=== PATIENT | male | born 1965 | race Two or more races ===

== ENCOUNTER 2017-12-19 14:38 | Inpatient (IN) | payer MEDICARE, MEDICAID ==
[~2017-12-19] VITALS: Ht 177.8 cm; Wt 68.0 kg
[~2017-12-19 14:38] MED LIST: ALPR0.25 PO; B-CO1CAP6 PO; BENA5TAB14; CALC0.25; CALC0.25 PO; CARV25TA OR; CARV25TA55; CARV25TA55 PO; CARV40CA; CYCL1CAP; CYCL1CAP PO; CYCL1CAP10 OR; ERGO1CAP6 PO; FER325T PO; GLUC1KIT; HYDR50TA15; INSLISPI; INSU70IN9; INSU70IN9 SC; INSUINJ3 SC; MULTCAP45 PO; MYCO250C PO; MYCO500T PO; NIFE30TA70; NIFE30TA76 PO; OME20GT; OME20T PO; OMEG1CAP10; OMEG1CAP10 OR; OMEP20CA74 OR; OMEP20TA34 PO; POTA8TAB2; PRE5T; PRED5PAK2; PRED5PAK8 PO; PREDPOW63; PROCARDIA PO; RANI-229; RANI300C7; RANI300C7 PO; SIMV-13 PO; SIMV-8; SIMV40TA96; SODI650T PO; TACR1TAB4 PO; VALS40TA2 OR; [UNRECOGNIZED DRUG - CODE]
[2017-12-19] MEDS ORDERED: VANCOMYCIN PER PHARMACY 0 MG IV SCH (16:00)
[2017-12-19] MEDS ORDERED: MORPHINE SULF INJ 2 MG/ML SYRINGE 1ML IV PRN (16:00)
[2017-12-19] MEDS ORDERED: NITROGLYCERIN 0.4 MG SL TAB SL PRN (16:00)
[2017-12-19] MEDS ORDERED: DEXTROSE (50%) 50ML SYRG IV PRN (16:00)
[2017-12-19 16:27] LABS: Basophils # (auto) 0.1 uL; Basophils % (auto) 1.3 % (0.0-2.0); Eosinophils # (auto) 0 uL; Eosinophils % (auto) 0.6 % (0.0-7.0); Hemoglobin 7.6 g/dL (13.5-17.5); Lymphocytes # (auto) 1.8 uL; Lymphocytes % (auto) 29.8 % (10.0-50.0); Mean Corpuscular Hemoglobin 29.9 pg (28.0-32.0); Mean Corpuscular Hgb Conc. 33.2 g/dL (32.0-36.0); Mean Corpuscular Volume 90.1 fL (80.0-100.0); Monocytes # (auto) 0.5 uL; Monocytes % (auto) 8.9 % (0.0-12.0); Neutrophils # (auto) 3.5 uL; Neutrophils % (auto) 59.4 % (37.0-80.0); Nucleated Red Blood Cells % 0.2 %; Platelet Count (auto) 161 10^3/uL (140-450); Red Blood Cells 2.55 10^6/uL (4.5-5.90); Red Cell Distribution Width 18.9 % (11.8-14.3); White Blood Cell 5.9 10^3/uL (4.4-10.8)
[2017-12-19] MEDS ORDERED: CALCITRIOL 0.25 MCG CAP PO ONE (16:30)
[2017-12-19] MEDS ORDERED: cefTAZidime 1 GM in SODIUM CHL 0.9% 50 ML IV SCH (16:30)
[2017-12-19 16:37] LABS: Albumin 0.5 g/dL (3.4-5.0); BUN/Creatinine Ratio 2.5; Bilirubin, Total 0.3 mg/dL (0.2-1.0); Calcium 6.4 mg/dL (8.5-10.1); Magnesium 1.5 mg/dL (1.6-2.6); Potassium 3.6 mmol/L (3.5-5.1); Total Protein 3.6 g/dL (6.4-8.2)
[2017-12-19 16:42] LABS: Lactic Acid w/Reflex 5.2 mmol/L (0.4-2.0)
[2017-12-19] MEDS ORDERED: VANCOMYCIN 1GM/250ML 250 ML IV ONE (16:45)
[2017-12-19] MEDS: ACCU-CHEK COMFORT CURVE STRIP VI SCH ×2 (17:46→22:00)
[2017-12-19] MEDS: InsuLIN REG 1unit/0.01ml Soln (100units/ml) SC SCH ×2 (17:46→22:00)
[2017-12-19] MEDS ORDERED: MAGNESIUM SULFATE 1GM/100ML 100 ML IV ONE (18:00)
[2017-12-19] MEDS: BOOST PLUS 8 ounce PO SCH (18:49)
[2017-12-19 21:20] VITALS: BP_SYST 102; BP_SYST 106; BP_DIAS 62; BP_DIAS 72
[2017-12-19 22:33] LABS: Hematocrit 22.8 % (41.0-53.0); Hemoglobin 7.7 g/dL (13.5-17.5)
[2017-12-19 22:48] LABS: Lactic Acid w/Reflex 3.5 mmol/L (0.4-2.0)
[2017-12-19] MEDS: LEVOFLOXACIN 500MG 100 ML IV SCH (23:00)
[2017-12-20] VITALS (17 sets, daily range): BP systolic 94–119; BP diastolic 59–69
[2017-12-20] MEDS: ACCU-CHEK COMFORT CURVE STRIP VI SCH ×4 (06:33→22:00)
[2017-12-20] MEDS: InsuLIN REG 1unit/0.01ml Soln (100units/ml) SC SCH ×4 (06:34→23:00)
[2017-12-20 07:27] LABS: Basophils # (auto) 0 uL; Eosinophils # (auto) 0 uL; Hemoglobin 7.1 g/dL (13.5-17.5); Lymphocytes # (auto) 1.7 uL; Monocytes # (auto) 0.6 uL; Red Cell Distribution Width 18.6 % (11.8-14.3)
[2017-12-20 07:30] LABS: Basophils % (auto) 0.6 % (0.0-2.0); Eosinophils % (auto) 0.3 % (0.0-7.0); Hematocrit 20.4 % (41.0-53.0); Lymphocytes % (auto) 31.6 % (10.0-50.0); Mean Corpuscular Hgb Conc. 34.8 g/dL (32.0-36.0); Mean Corpuscular Volume 89.1 fL (80.0-100.0); Monocytes % (auto) 11.8 % (0.0-12.0); Neutrophils % (auto) 55.7 % (37.0-80.0); Nucleated Red Blood Cells % 0.4 %; Platelet Count (auto) 132 10^3/uL (140-450); Red Blood Cells 2.29 10^6/uL (4.5-5.90); White Blood Cell 5.5 10^3/uL (4.4-10.8)
[2017-12-20 07:50] LABS: BUN/Creatinine Ratio 2.4; Calcium 6.7 mg/dL (8.5-10.1); Magnesium 1.7 mg/dL (1.6-2.6); Potassium 3.1 mmol/L (3.5-5.1)
[2017-12-20] MEDS: BOOST PLUS 8 ounce PO SCH ×3 (08:00→18:00)
[2017-12-20] MEDS ORDERED: PANTOPRAZOLE 40 MG TAB PO ONE (09:45)
[2017-12-20] MEDS: APIXABAN 2.5 MG TAB PO SCH ×2 (10:00→23:30)
[2017-12-20] MEDS: CALCITRIOL 0.25 MCG CAP PO SCH (10:00)
[2017-12-20] MEDS ORDERED: ENOXAPARIN SOD 30 MG/0.3 ML SYRINGE SC SCH (10:00)
[2017-12-20] MEDS ORDERED: VANCOMYCIN 750 MG in D5W 5% 250 ML IV ONE (11:00)
[2017-12-20] MEDS ORDERED: EPOETIN ALFA 10,000 UNIT/1 ML VIAL IV ONE (11:30)
[2017-12-20 11:59] LABS: % Iron Saturation 157.9 % (20-55)
[2017-12-20 13:31] LABS: INR 2.5 (0.9-1.15); Prothrombin Time 25.4 sec (9.27-12.13)
[2017-12-20] MEDS ORDERED: APIX2.5T OR (20:36)
[2017-12-20] MEDS ORDERED: POTA20TA53 PO (20:36)
[2017-12-20] MEDS ORDERED: MAGN250T3 PO (20:36)
[2017-12-20] MEDS ORDERED: MAGN250T8 PO (20:37)
[2017-12-21 00:15] VITALS: BP 105/70
[2017-12-21 05:00] VITALS: BP 125/78
[2017-12-21 05:40] LABS: Basophils # (auto) 0 uL; Basophils % (auto) 0.6 % (0.0-2.0); Eosinophils # (auto) 0 uL; Eosinophils % (auto) 0.5 % (0.0-7.0); Hematocrit 27.1 % (41.0-53.0); Hemoglobin 9.4 g/dL (13.5-17.5); Lymphocytes # (auto) 1.6 uL; Lymphocytes % (auto) 33.4 % (10.0-50.0); Mean Corpuscular Hemoglobin 31.4 pg (28.0-32.0); Mean Corpuscular Hgb Conc. 34.9 g/dL (32.0-36.0); Mean Corpuscular Volume 89.9 fL (80.0-100.0); Monocytes # (auto) 0.7 uL; Monocytes % (auto) 13.3 % (0.0-12.0); Neutrophils # (auto) 2.6 uL; Neutrophils % (auto) 52.2 % (37.0-80.0); Nucleated Red Blood Cells % 0.4 %; Red Blood Cells 3.01 10^6/uL (4.5-5.90); Red Cell Distribution Width 16.8 % (11.8-14.3); White Blood Cell 4.9 10^3/uL (4.4-10.8)
[2017-12-21 06:32] LABS: BUN/Creatinine Ratio 2.1; Calcium 6.4 mg/dL (8.5-10.1); Potassium 3.1 mmol/L (3.5-5.1)
[2017-12-21 06:51] LABS: Platelet Count (auto) 99 10^3/uL (140-450)
[2017-12-21] MEDS: InsuLIN REG 1unit/0.01ml Soln (100units/ml) SC SCH ×4 (07:00→21:44)
[2017-12-21] MEDS: ACCU-CHEK COMFORT CURVE STRIP VI SCH ×4 (07:00→21:44)
[2017-12-21 08:33] VITALS: BP 117/71
[2017-12-21] MEDS: APIXABAN 2.5 MG TAB PO SCH (10:08)
[2017-12-21] MEDS: CALCITRIOL 0.25 MCG CAP PO SCH (10:08)
[2017-12-21] MEDS: PANTOPRAZOLE 40 MG TAB PO SCH (10:09)
[2017-12-21] MEDS: BOOST PLUS 8 ounce PO SCH ×3 (12:25→18:07)
[2017-12-21 12:51] VITALS: BP 115/70
[2017-12-21 16:00] VITALS: BP 102/67
[2017-12-21] MEDS: FERROUS SULFATE 325 MG TAB PO SCH (18:07)
[2017-12-21] MEDS: LEVOFLOXACIN 500MG 100 ML IV SCH (21:44)
[2017-12-21 22:00] VITALS: BP 101/64
[2017-12-21] MEDS ORDERED: traMADol HCL 50 MG TAB PO ONE (22:15)
[2017-12-22 05:00] VITALS: BP 90/50
[2017-12-22 05:53] LABS: Basophils # (auto) 0 uL; Basophils % (auto) 0.8 % (0.0-2.0); Eosinophils # (auto) 0 uL; Eosinophils % (auto) 0.1 % (0.0-7.0); Hematocrit 28.4 % (41.0-53.0); Hemoglobin 9.8 g/dL (13.5-17.5); Lymphocytes # (auto) 1.8 uL; Lymphocytes % (auto) 35.3 % (10.0-50.0); Mean Corpuscular Hemoglobin 31.2 pg (28.0-32.0); Mean Corpuscular Hgb Conc. 34.7 g/dL (32.0-36.0); Mean Corpuscular Volume 90.1 fL (80.0-100.0); Monocytes # (auto) 0.6 uL; Monocytes % (auto) 12.6 % (0.0-12.0); Neutrophils # (auto) 2.6 uL; Neutrophils % (auto) 51.2 % (37.0-80.0); Nucleated Red Blood Cells % 0.2 %; Platelet Count (auto) 95 10^3/uL (140-450); Red Blood Cells 3.15 10^6/uL (4.5-5.90); Red Cell Distribution Width 16.4 % (11.8-14.3); White Blood Cell 5.1 10^3/uL (4.4-10.8)
[2017-12-22] MEDS: ACCU-CHEK COMFORT CURVE STRIP VI SCH ×4 (06:05→22:00)
[2017-12-22] MEDS: InsuLIN REG 1unit/0.01ml Soln (100units/ml) SC SCH ×4 (06:05→22:30)
[2017-12-22 06:22] LABS: Calcium 6.4 mg/dL (8.5-10.1)
[2017-12-22] MEDS: BOOST PLUS 8 ounce PO SCH ×3 (08:00→18:43)
[2017-12-22 08:40] VITALS: BP 96/69
[2017-12-22] MEDS ORDERED: EPOETIN ALFA 10,000 UNIT/1 ML VIAL IV ONE (09:30)
[2017-12-22] MEDS ORDERED: VANCOMYCIN 500 MG in D5W 5% 100 ML IV ONE (10:15)
[2017-12-22] MEDS ORDERED: traMADol HCL 50 MG TAB PO PRN (10:45)
[2017-12-22] MEDS ORDERED: PROMETHAZINE HCL 25 MG/ML 1ML IV PRN (10:45)
[2017-12-22] MEDS ORDERED: ARTIFICIAL TEARS 15ml EACHEYE PRN (10:45)
[2017-12-22] MEDS: PANTOPRAZOLE 40 MG TAB PO SCH (10:55)
[2017-12-22] MEDS: FERROUS SULFATE 325 MG TAB PO SCH ×2 (10:55→18:43)
[2017-12-22] MEDS: CALCITRIOL 0.25 MCG CAP PO SCH (10:55)
[2017-12-22 12:32] VITALS: BP 101/65
[2017-12-22] MEDS ORDERED: LIDOCAINE 2% (LOCAL ANESTH.) PF 5ml SDV ONE ×2 (14:44→15:25)
[2017-12-22] MEDS ORDERED: MIDAZOLAM HCL 1MG/1ML-2 ML VIAL ONE (15:03)
[2017-12-22] MEDS ORDERED: fentaNYL CITRATE 100 MCG/2 ML VL ONE (15:15)
[2017-12-22 17:10] LABS: Hepatitis A Ab IgM Negative; Hepatitis B Core IgM Negative
[2017-12-22 17:11] LABS: Hepatitis B Surface Antigen Negative (Negative)
[2017-12-22 17:18] LABS: Hepatitis C Antibody Positive (Negative)
[2017-12-22 22:00] VITALS: BP 106/71
[2017-12-23 05:30] VITALS: BP 112/67
[2017-12-23 05:49] LABS: Basophils # (auto) 0.1 uL; Basophils % (auto) 1.4 % (0.0-2.0); Eosinophils # (auto) 0 uL; Hematocrit 28.6 % (41.0-53.0); Hemoglobin 9.8 g/dL (13.5-17.5); Lymphocytes # (auto) 1.7 uL; Lymphocytes % (auto) 34.8 % (10.0-50.0); Mean Corpuscular Hemoglobin 30.9 pg (28.0-32.0); Mean Corpuscular Hgb Conc. 34.3 g/dL (32.0-36.0); Mean Corpuscular Volume 90.1 fL (80.0-100.0); Monocytes # (auto) 0.5 uL; Monocytes % (auto) 10.5 % (0.0-12.0); Neutrophils # (auto) 2.6 uL; Neutrophils % (auto) 53.3 % (37.0-80.0); Nucleated Red Blood Cells % 0.1 %; Platelet Count (auto) 84 10^3/uL (140-450); Red Blood Cells 3.17 10^6/uL (4.5-5.90); Red Cell Distribution Width 16.8 % (11.8-14.3); White Blood Cell 4.8 10^3/uL (4.4-10.8)
[2017-12-23 06:20] LABS: Albumin 0.5 g/dL (3.4-5.0); BUN/Creatinine Ratio 2.1; Bilirubin, Total 0.5 mg/dL (0.2-1.0); Calcium 6.6 mg/dL (8.5-10.1); Total Protein 3.3 g/dL (6.4-8.2)
[2017-12-23] MEDS: InsuLIN REG 1unit/0.01ml Soln (100units/ml) SC SCH (07:00)
[2017-12-23] MEDS: ACCU-CHEK COMFORT CURVE STRIP VI SCH (07:00)
[2017-12-23 07:28] VITALS: BP 93/60
[2017-12-23] MEDS: BOOST PLUS 8 ounce PO SCH ×2 (09:16→14:51)
[2017-12-23] MEDS: PANTOPRAZOLE 40 MG TAB PO SCH (11:38)
[2017-12-23] MEDS: CALCITRIOL 0.25 MCG CAP PO SCH (11:38)
[2017-12-23 11:55] VITALS: BP 110/69
[2017-12-23] MEDS ORDERED: HEPARIN 1,000 UNITS/ml 1ML VIAL IV ONE (14:30)
[2017-12-23] MEDS ORDERED: EPOETIN ALFA 10,000 UNIT/1 ML VIAL IV ONE (14:30)
[2017-12-23] MEDS: FERROUS SULFATE 325 MG TAB PO SCH (14:51)
[2017-12-23 16:09] VITALS: BP 116/78
[2017-12-23 16:57] VITALS: BP 116/78
== END 2017-12-23 19:30 | disposition home health service (06) | DRG 871 ==
LOC: ER 14:38 → EDBD 14:38 → TELE 14:39 → TELE-CENTR 21:25
PROVIDERS: ADMIT Internal Medicine; ATTEND Internal Medicine
PROC: 30233N1 Transfusion of Nonautologous Red Blood Cells into Peripheral Vein, Percutaneous Approach (ICD-10-PCS; 2017-12-20)
PROC: 0JH63XZ Insertion of Tunneled Vascular Access Device into Chest Subcutaneous Tissue and Fascia, Percutaneous Approach (ICD-10-PCS; principal; 2017-12-23)
PROC: 02H633Z Insertion of Infusion Device into Right Atrium, Percutaneous Approach (ICD-10-PCS; 2017-12-23)
PROC: B2141ZZ Fluoroscopy of Right Heart using Low Osmolar Contrast (ICD-10-PCS; 2017-12-23)
PROC: B244YZZ Ultrasonography of Right Heart using Other Contrast (ICD-10-PCS; 2017-12-23)
PROC: 5A1D70Z Performance of Urinary Filtration, Intermittent, Less than 6 Hours Per Day (ICD-10-PCS; 2017-12-23)
DX: A41.9 Sepsis, unspecified organism (principal); N18.6 End stage renal disease; E43 Unspecified severe protein-calorie malnutrition; J18.1 Lobar pneumonia, unspecified organism; I12.0 Hypertensive chronic kidney disease with stage 5 chronic kidney disease or end stage renal disease; E87.1 Hypo-osmolality and hyponatremia; Z94.0 Kidney transplant status; I25.10 Atherosclerotic heart disease of native coronary artery without angina pectoris; Z99.2 Dependence on renal dialysis; D63.1 Anemia in chronic kidney disease; E11.22 Type 2 diabetes mellitus with diabetic chronic kidney disease; E11.65 Type 2 diabetes mellitus with hyperglycemia; E83.51 Hypocalcemia; I67.2 Cerebral atherosclerosis; K70.9 Alcoholic liver disease, unspecified; Z82.49 Family history of ischemic heart disease and other diseases of the circulatory system; Z86.718 Personal history of other venous thrombosis and embolism; Z95.810 Presence of automatic (implantable) cardiac defibrillator; Z79.01 Long term (current) use of anticoagulants; Z88.8 Allergy status to other drugs, medicaments and biological substances; Z79.899 Other long term (current) drug therapy; Z79.4 Long term (current) use of insulin; Z68.21 Body mass index [BMI] 21.0-21.9, adult
CPT/HCPCS: 36415; 70450; 71045; 76001; 76937; 80048; 80053; 80074; 80202; 82962; 83540; 83550; 83605; 83735; 84443; 84484; 85014; 85018; 85025; 85610; 86850; 86900; 86901; 86920; 87040; 87205; 89051; 90935; 93005; 93306; 94761; 96365; 96367; 96368; 99152; J0885; J1815; J1956; J2250; J7060

== ENCOUNTER 2018-01-28 17:35 | Inpatient (IN) | payer MEDICARE, MEDICAID ==
[~2018-01-28] VITALS: Ht 170.2 cm; Wt 80.2 kg
[~2018-01-28 17:35] MED LIST changes: +APIX2.5T OR; -BENA5TAB14; -CALC0.25; -CARV25TA OR; -CARV25TA55; -CARV25TA55 PO; -CARV40CA; -CYCL1CAP; -CYCL1CAP PO; -CYCL1CAP10 OR; -ERGO1CAP6 PO; -GLUC1KIT; -HYDR50TA15; -INSLISPI; -INSU70IN9; -INSU70IN9 SC; +MAGN250T8 PO; -MYCO250C PO; -MYCO500T PO; -NIFE30TA70; -NIFE30TA76 PO; -OME20GT; -OME20T PO; -OMEG1CAP10 OR; -OMEP20TA34 PO; +POTA20TA53 PO; -POTA8TAB2; -PRE5T; -PRED5PAK2; -PRED5PAK8 PO; -PREDPOW63; -PROCARDIA PO; -RANI-229; -RANI300C7 PO; -SIMV-13 PO; -SIMV40TA96; -SODI650T PO; -TACR1TAB4 PO; -VALS40TA2 OR; -[UNRECOGNIZED DRUG - CODE]
[2018-01-28 18:38] LABS: Hemoglobin 9.5 g/dL (13.5-17.5); Mean Corpuscular Volume 89.6 fL (80.0-100.0); White Blood Cell 3.5 10^3/uL (4.4-10.8)
[2018-01-28 18:40] LABS: Hematocrit 27.9 % (41.0-53.0); Mean Corpuscular Hemoglobin 30.6 pg (28.0-32.0); Mean Corpuscular Hgb Conc. 34.1 g/dL (32.0-36.0); Red Blood Cells 3.12 10^6/uL (4.5-5.90); Red Cell Distribution Width 16.3 % (11.8-14.3)
[2018-01-28 18:45] LABS: Platelet Count (auto) 43 10^3/uL (140-450)
[2018-01-28 18:46] LABS: Basophils % (manual) 0 (0.0-2.0); Blast Cells 0; Metamyelocytes % 0; Myelocytes % 0; Promyelocytes % 0; Reactive Lymphocytes 0
[2018-01-28 18:52] LABS: INR 1.62 (0.9-1.15); Partial Thromboplastin Time 39.2 sec (23.78-33.04); Prothrombin Time 16.9 sec (9.27-12.13)
[2018-01-28 18:55] LABS: Alanine Aminotransferase 18 U/L (16-61); Albumin 2.7 g/dL (3.4-5.0); Anion Gap 7 (5-15); Aspartate Aminotransferase 31 U/L (15-37); BUN/Creatinine Ratio 3.4; Blood Alcohol < 3.0 mg/dL (0-5); Blood Urea Nitrogen 5 mg/dL (7-18); Calcium 7.5 mg/dL (8.5-10.1); Carbon Dioxide 30 mmol/L (21-32); Chloride 103 mmol/L (98-107); GFR African American 65 mL/min; GFR Non-African American 54 mL/min; Glucose 103 mg/dL (74-106); Potassium 3.3 mmol/L (3.5-5.1); Sodium 140 mmol/L (136-145)
[2018-01-28 18:58] LABS: Alkaline Phosphatase 83 U/L (45-117); Bilirubin, Total 5.6 mg/dL (0.2-1.0); Total Protein 5.9 g/dL (6.4-8.2)
[2018-01-28 18:59] LABS: Magnesium 1.9 mg/dL (1.6-2.6)
[2018-01-28 19:27] LABS: Band Neutrophils % (manual) 1; Lymphocytes % (manual) 38 (10.0-50.0); Monocytes % (manual) 8 (0-12)
[2018-01-28 19:29] LABS: Eosinophils % (manual) 1 (0-7)
[2018-01-28] MEDS ORDERED: DEXTROSE (50%) 50ML SYRG IV PRN (22:45)
[2018-01-28] MEDS ORDERED: ONDANSETRON HCL 4 MG/2 ML VIAL IV PRN (22:45)
[2018-01-29] MEDS: ACCU-CHEK COMFORT CURVE STRIP VI SCH ×4 (00:53→18:00)
[2018-01-29] MEDS: InsuLIN REG 1unit/0.01ml Soln (100units/ml) SC SCH ×4 (01:05→18:00)
[2018-01-29] MEDS ORDERED: LEVOFLOXACIN 250MG 50 ML IV ONE (01:45)
[2018-01-29 04:34] LABS: Hemoglobin 8.8 g/dL (13.5-17.5); White Blood Cell 4.6 10^3/uL (4.4-10.8)
[2018-01-29 04:37] LABS: Hematocrit 25.5 % (41.0-53.0); Mean Corpuscular Hgb Conc. 34.5 g/dL (32.0-36.0); Mean Corpuscular Volume 89.7 fL (80.0-100.0); Platelet Count (auto) 37 10^3/uL (140-450); Red Blood Cells 2.85 10^6/uL (4.5-5.90); Red Cell Distribution Width 16.5 % (11.8-14.3)
[2018-01-29 05:00] VITALS: BP 149/85
[2018-01-29 05:02] LABS: Albumin 2.3 g/dL (3.4-5.0); BUN/Creatinine Ratio 4.4; Calcium 7.9 mg/dL (8.5-10.1); Potassium 3.2 mmol/L (3.5-5.1)
[2018-01-29 05:06] LABS: Bilirubin, Total 4.9 mg/dL (0.2-1.0); Total Protein 5.4 g/dL (6.4-8.2)
[2018-01-29 05:09] LABS: Basophils % (manual) 0 (0.0-2.0); Blast Cells 0; Metamyelocytes % 0; Myelocytes % 0; Promyelocytes % 0; Reactive Lymphocytes 0
[2018-01-29 09:00] VITALS: BP 120/77
[2018-01-29] MEDS ORDERED: APIXABAN 2.5 MG TAB PO SCH (10:00)
[2018-01-29] MEDS: PANTOPRAZOLE 40 MG TAB PO SCH (11:22)
[2018-01-29] MEDS: MIDODRINE HCL 10 MG TAB PO SCH (11:22)
[2018-01-29] MEDS: ASPirin 81 mg TAB PO SCH (11:23)
[2018-01-29] MEDS: AMIODARONE HCL 200 MG TAB PO SCH (11:23)
[2018-01-29] MEDS ORDERED: PRE1T PO (11:31)
[2018-01-29] MEDS ORDERED: LACT10SO3 PO (11:32)
[2018-01-29] MEDS ORDERED: ASCO-22 PO (11:34)
[2018-01-29] MEDS ORDERED: ZINC220C8 PO (11:34)
[2018-01-29 13:00] VITALS: BP 112/84
[2018-01-29 13:11] LABS: Band Neutrophils % (manual) 2; Lymphocytes % (manual) 18 (10.0-50.0)
[2018-01-29 13:12] LABS: Eosinophils % (manual) 2 (0-7); Monocytes % (manual) 11 (0-12)
[2018-01-29] MEDS: HYDROcodone-ACET 5/325MG TAB PO PRN (16:24)
[2018-01-29 17:00] VITALS: BP_SYST 103; BP_SYST 120; BP_DIAS 72; BP_DIAS 77
[2018-01-29] MEDS ORDERED: ATORVASTATIN 20 MG TAB PO SCH (22:00)
[2018-01-29] MEDS ORDERED: LEVOFLOXACIN 250MG 50 ML IV SCH (22:00)
[2018-01-29 23:24] VITALS: BP 115/80
[2018-01-30] MEDS: ACCU-CHEK COMFORT CURVE STRIP VI SCH ×4 (00:02→18:00)
[2018-01-30] MEDS: InsuLIN REG 1unit/0.01ml Soln (100units/ml) SC SCH ×4 (05:31→18:00)
[2018-01-30 05:34] VITALS: BP 109/73
[2018-01-30 07:48] LABS: Hematocrit 27.5 % (41.0-53.0); Hemoglobin 9.2 g/dL (13.5-17.5); Mean Corpuscular Hemoglobin 29.5 pg (28.0-32.0); Mean Corpuscular Hgb Conc. 33.4 g/dL (32.0-36.0); Mean Corpuscular Volume 88.1 fL (80.0-100.0); Platelet Count (auto) 32 10^3/uL (140-450); Red Blood Cells 3.12 10^6/uL (4.5-5.90); Red Cell Distribution Width 16.4 % (11.8-14.3); White Blood Cell 5.2 10^3/uL (4.4-10.8)
[2018-01-30 07:51] LABS: Basophils % (manual) 0 (0.0-2.0); Blast Cells 0; Metamyelocytes % 0; Myelocytes % 0; Promyelocytes % 0
[2018-01-30 07:58] LABS: BUN/Creatinine Ratio 4.9; Calcium 8.2 mg/dL (8.5-10.1); Potassium 3.5 mmol/L (3.5-5.1)
[2018-01-30 08:38] VITALS: BP 86/54
[2018-01-30] MEDS ORDERED: predniSONE 20 MG TAB PO SCH ×2 (09:00→18:00)
[2018-01-30 09:32] LABS: Band Neutrophils % (manual) 3; Eosinophils % (manual) 1 (0-7); Lymphocytes % (manual) 29 (10.0-50.0); Monocytes % (manual) 8 (0-12); Reactive Lymphocytes 1
[2018-01-30] MEDS: PANTOPRAZOLE 40 MG TAB PO SCH (10:54)
[2018-01-30] MEDS: ASPirin 81 mg TAB PO SCH (10:55)
[2018-01-30] MEDS: AMIODARONE HCL 200 MG TAB PO SCH (10:55)
[2018-01-30] MEDS: MIDODRINE HCL 10 MG TAB PO SCH (10:56)
[2018-01-30] MEDS: HYDROcodone-ACET 5/325MG TAB PO PRN (11:04)
[2018-01-30 12:55] VITALS: BP 96/66
[2018-01-30 16:58] VITALS: BP 110/73
[2018-01-30 21:52] VITALS: BP 110/73
[2018-01-31] MEDS: ACCU-CHEK COMFORT CURVE STRIP VI SCH ×4 (00:38→18:00)
[2018-01-31] MEDS: HYDROcodone-ACET 5/325MG TAB PO PRN (04:30)
[2018-01-31 05:29] VITALS: BP 96/57
[2018-01-31] MEDS: InsuLIN REG 1unit/0.01ml Soln (100units/ml) SC SCH ×4 (06:29→18:00)
[2018-01-31 09:00] VITALS: BP 83/57
[2018-01-31] MEDS: MIDODRINE HCL 10 MG TAB PO SCH (09:28)
[2018-01-31] MEDS: AMIODARONE HCL 200 MG TAB PO SCH (09:29)
[2018-01-31] MEDS: ALBUMIN 25% 100 ML IV SCH ×2 (10:00→11:00)
[2018-01-31] MEDS ORDERED: predniSONE 20 MG TAB PO SCH ×2 (10:00)
[2018-01-31] MEDS ORDERED: PANT40T PO (10:13)
[2018-01-31] MEDS: PANTOPRAZOLE 40 MG TAB PO SCH (11:14)
[2018-01-31 13:00] VITALS: BP 80/53
[2018-01-31] MEDS ORDERED: EPOETIN ALFA 10,000 UNIT/1 ML VIAL IV ONE (14:30)
[2018-01-31 17:26] VITALS: BP 87/56
[2018-01-31 17:28] VITALS: BP 78/44
== END 2018-01-31 19:00 | disposition hospice, home (50) | DRG 432 ==
LOC: EDBD 17:35 → EDUNIT# 17:35 → ER 17:35 → TELE 17:36 → TELE-WESTW 23:45 → WEST WING 01-31 06:33
PROVIDERS: ADMIT Nurse Practitioner; ATTEND Internal Medicine
PROC: 3E1M39Z Irrigation of Peritoneal Cavity using Dialysate, Percutaneous Approach (ICD-10-PCS; principal; 2018-01-31)
DX: K70.31 Alcoholic cirrhosis of liver with ascites (principal); L89.153 Pressure ulcer of sacral region, stage 3; G92 Toxic encephalopathy; N18.6 End stage renal disease; E43 Unspecified severe protein-calorie malnutrition; I50.43 Acute on chronic combined systolic (congestive) and diastolic (congestive) heart failure; D61.818 Other pancytopenia; D68.59 Other primary thrombophilia; I13.2 Hypertensive heart and chronic kidney disease with heart failure and with stage 5 chronic kidney disease, or end stage renal disease; K76.6 Portal hypertension; Z94.0 Kidney transplant status; Z66 Do not resuscitate; K72.90 Hepatic failure, unspecified without coma; Z51.5 Encounter for palliative care; Z99.2 Dependence on renal dialysis; E78.5 Hyperlipidemia, unspecified; I25.10 Atherosclerotic heart disease of native coronary artery without angina pectoris; D63.8 Anemia in other chronic diseases classified elsewhere; B19.20 Unspecified viral hepatitis C without hepatic coma; E11.22 Type 2 diabetes mellitus with diabetic chronic kidney disease; E11.51 Type 2 diabetes mellitus with diabetic peripheral angiopathy without gangrene; E11.59 Type 2 diabetes mellitus with other circulatory complications; E87.6 Hypokalemia; F17.200 Nicotine dependence, unspecified, uncomplicated; K70.11 Alcoholic hepatitis with ascites; Z86.718 Personal history of other venous thrombosis and embolism; Z80.8 Family history of malignant neoplasm of other organs or systems; Z95.810 Presence of automatic (implantable) cardiac defibrillator; Z87.440 Personal history of urinary (tract) infections; Z79.899 Other long term (current) drug therapy; Z88.8 Allergy status to other drugs, medicaments and biological substances; Z68.27 Body mass index [BMI] 27.0-27.9, adult
CPT/HCPCS: 36415; 70450; 71045; 74176; 76705; 80048; 80053; 80320; 82140; 82962; 83735; 83880; 84484; 85007; 85025; 85027; 85610; 85730; 87040; 87081; 90935; 93005; 94761; 96365; J0885; J1815; P9047

== ENCOUNTER 2018-03-16 17:08 | Emergency (ER) | payer MEDICARE, MEDICAID ==
[~2018-03-16] VITALS: Ht 177.8 cm; Wt 63.5 kg
[~2018-03-16 17:08] MED LIST changes: -APIX2.5T OR; +LACT10SO3 PO; -MAGN250T8 PO; -MULTCAP45 PO; -OMEG1CAP10; -OMEP20CA74 OR; +PANT40T PO; -POTA20TA53 PO; -RANI300C7; -SIMV-8
[2018-03-16 18:29] LABS: Basophils # (auto) 0 uL; Basophils % (auto) 0.7 % (0.0-2.0); Eosinophils # (auto) 0.1 uL; Monocytes # (auto) 0.9 uL; Neutrophils # (auto) 4.1 uL
[2018-03-16] MEDS ORDERED: HYDROcodone-ACET 10/325MG TAB PO ONE (18:30)
[2018-03-16 18:31] LABS: Eosinophils % (auto) 1.1 % (0.0-7.0); Hematocrit 21.1 % (41.0-53.0); Lymphocytes # (auto) 1.2 uL; Lymphocytes % (auto) 19.5 % (10.0-50.0); Mean Corpuscular Hemoglobin 34.1 pg (28.0-32.0); Mean Corpuscular Hgb Conc. 33.4 g/dL (32.0-36.0); Mean Corpuscular Volume 102.3 fL (80.0-100.0); Monocytes % (auto) 13.7 % (0.0-12.0); Red Blood Cells 2.06 10^6/uL (4.5-5.90); White Blood Cell 6.3 10^3/uL (4.4-10.8)
[2018-03-16 18:33] LABS: Platelet Count (auto) 87 10^3/uL (140-450); Red Cell Distribution Width 22.1 % (11.8-14.3)
[2018-03-16 18:45] LABS: BUN/Creatinine Ratio 6.9; Calcium 6.8 mg/dL (8.5-10.1); Magnesium 1.9 mg/dL (1.6-2.6); Potassium 3.5 mmol/L (3.5-5.1)
[2018-03-16 18:49] LABS: INR 2.15 (0.9-1.15)
[2018-03-16 18:51] LABS: Bilirubin, Total 1.7 mg/dL (0.2-1.0); Total Protein 6.6 g/dL (6.4-8.2)
[2018-03-16 20:00] VITALS: BP 147/88
[2018-03-16 20:15] VITALS: BP 146/80
[2018-03-16 20:45] VITALS: BP 167/88
[2018-03-16 20:55] VITALS: BP 155/89
[2018-03-16 21:10] VITALS: BP 155/78
[2018-03-16 21:42] VITALS: BP 155/91
== END 2018-03-16 22:00 | disposition left against medical advice (07) ==
LOC: ER 17:11
DX: D64.9 Anemia, unspecified (principal); E11.22 Type 2 diabetes mellitus with diabetic chronic kidney disease; I13.2 Hypertensive heart and chronic kidney disease with heart failure and with stage 5 chronic kidney disease, or end stage renal disease; N18.6 End stage renal disease; E78.5 Hyperlipidemia, unspecified; Z99.2 Dependence on renal dialysis; Z79.4 Long term (current) use of insulin; Z87.440 Personal history of urinary (tract) infections; Z96.89 Presence of other specified functional implants
CPT/HCPCS: 36415; 36430; 71045; 80053; 82140; 83735; 83880; 84484; 85025; 85610; 85730; 86850; 86900; 86901; 86920; 93005; 94761; 99285; J7050; P9016